=== PATIENT | male | born 1955 | race Caucasian/White ===

== ENCOUNTER 2020-06-14 13:53 | Outpatient (CLI) | payer MEDICARE, BC ==
[2020-06-14 14:54] LABS: BASOPHILS # (AUTO) 0.1 X10'3 (0-0.2); BASOPHILS % (AUTO) 0.7 % (0-1); EOSINOPHILS # (AUTO) 0.2 X10'3 (0-0.9); EOSINOPHILS % (AUTO) 2.3 % (0-6); HEMATOCRIT 49.5 % (42.0-52.0); HEMOGLOBIN 16.4 g/dl (14.0-17.9); LYMPHOCYTES # (AUTO) 2.5 X10'3 (1.1-4.8); LYMPHOCYTES % (AUTO) 26.4 % (21-51); MEAN CORPUSCULAR HEMOGLOBIN 30.8 PG (27.0-31.0); MEAN CORPUSCULAR HGB CONC 33.1 g/dL (33.0-36.5); MEAN CORPUSCULAR VOLUME 93.1 FL (78-98); MONOCYTES # (AUTO) 0.9 X10'3 (0-0.9); MONOCYTES % (AUTO) 9.8 % (2-12); NEUTROPHILS # (AUTO) 5.8 X10'3 (1.8-7.7); NEUTROPHILS % (AUTO) 60.8 % (42-75); PLATELET COUNT 267 X10'3 (140-440); RED BLOOD COUNT 5.32 X10'6 (4.70-6.10); RED CELL DISTRIBUTION WIDTH 12.8 % (11.5-14.5); WHITE BLOOD COUNT 9.5 X10'3 (4.5-11.0)
[2020-06-14 14:56] LABS: CLARITY,URINE CLEAR (Clear); COLOR,URINE YELLOW (Yellow); GLUCOSE, URINE NEGATIVE (Neg); KETONES,URINE NEGATIVE (Neg); LEUKOCYTE ESTERASE ,URINE NEGATIVE (Neg); NITRITES, URINE NEGATIVE (Neg); OCCULT BLOOD,URINE NEGATIVE (Neg); PH,URINE 5.5 (4.8-8.0); PROTEIN,URINE NEGATIVE (Neg); UA COLLECTION TYPE NON-SPECIFIED
[2020-06-14 15:05] LABS: HEMOGLOBIN A1C 6.3 % (4.5-6.2)
[2020-06-14 15:12] LABS: ALANINE AMINOTRANSFERASE 32 U/L (12-78); ALBUMIN/GLOBULIN RATIO 0.9 (1.1-1.5); ALKALINE PHOSPHATASE 82 IU/L (46-116); ANION GAP 10 (8-16); ASPARTATE AMINO TRANSFERASE 25 U/L (10-37); BLOOD UREA NITROGEN 22 MG/DL (7-18); BUN/CREATININE RATIO 19.1 (5.4-32.0); CALCIUM 9.5 MG/DL (8.5-10.1); CHLORIDE 99 MMOL/L (99-107); CHOL/HDL RATIO 3.7 (0.00-4.99); CHOLESTEROL 196 MG/DL (0-200); CREATININE 1.15 MG/DL (0.60-1.10); GLUCOSE 71 MG/DL (70-104); HDL CHOLESTEROL 53 MG/DL (35-60); LDL CHOLESTEROL 124 MG/DL (50-100); POTASSIUM 3.2 MMOL/L (3.5-5.1); SODIUM 138 MMOL/L (135-145); TOTAL CARBON DIOXIDE 29.2 MMOL/L (24-32); TOTAL PROTEIN 8.4 G/DL (6.4-8.2); TRIGLYCERIDES 169 MG/DL (20-135); eGFR 64 ML/MIN
== END 2020-06-14 23:59 | disposition home or self-care (01) ==
LOC: LAB 13:53
PROVIDERS: ATTEND Family Medicine
DX: Z00.00 Encounter for general adult medical examination without abnormal findings (principal); E78.1 Pure hyperglyceridemia
CPT/HCPCS: 36415; 80053; 80061; 81003; 82043; 83036; 85025

== ENCOUNTER 2024-04-15 11:59 | Outpatient (CLI) | payer MEDICARE, BC | END 2024-04-15 23:59 | disposition home or self-care (01) | LOC: RAD 11:59 | PROVIDERS: ATTEND Family Medicine | DX: M16.0 Bilateral primary osteoarthritis of hip (principal); M25.551 Pain in right hip; M25.552 Pain in left hip | CPT/HCPCS: 73522 ==

== ENCOUNTER 2025-06-11 14:54 | Emergency (ER) | payer MEDICARE, BC ==
[~2025-06-11] VITALS: Ht 203.2 cm; Wt 113.6 kg
[2025-06-11 14:59] VITALS: TEMP 98.9
--- NOTE | 2025-06-11 15:10 | Physician Documentation ---
History of Present Illness ~ Chief Complaint: Stroke Alert Stated Complaint: DIFF SPEAKING Time Seen by MD: 15:03 Source: family (7) HPI Patient brought in by his for acute stroke symptoms that began at 2:00 p.m.. He had been listening to a podcast, and he came to express to her that he was unable to understand what was happening on the pod cast. Shortly thereafter he began to have difficulty with speech, with significant expressive aphasia. He arrives unable to answer any questions, although he is awake, alert, and smiling. He has a history of what sounds like a syncopal episode two months ago, no other neurologic dysfunction in the past. Past Medical History Past Medical History: High Cholesterol, BPH, *ENDOCRINE* (Prediabetes) Smoking Status: Never smoker Alcohol Use: None Drug Use: none Review of Systems All Other Systems at this time: Reviewed and Negative Physical Exam Vital Signs: Temperature: 98.9, Source: Temporal, Heart Rate: 79, Respiratory Rate: 15, BP: 96/43, Pulse Oximetry: 99 General Appearance General: Pt is awake, alert, smiling, making eye contact, mostly following commands, but unable to answer any questions. Head: Normocephalic and atraumatic. Eyes: Conjunctiva normal. ENT: Mucous membranes moist. Neck: Supple. Chest: Clear to auscultation bilaterally, without rales, rhonchi, or wheezes. There is no accessory muscle use or retractions. Cardiac: Regular rate and rhythm without murmurs, gallops or rubs. Palpation of the chest wall is normal. Abd: Soft, nondistended, nontender, with normoactive bowel sounds. No guarding or rebound. Extremities: Within normal limits without cyanosis, clubbing, or edema. Skin: [place], warm and dry with no significant rash appreciated. Neuro: Cranial nerves II-XII grossly intact. No facial asymmetry. The gait is normal. Progress Results/Orders Results/Orders Orders - DOMONIQUE PRADO MD Monitor (06/11/25 14:59) 2 Large Bore Ivs (06/11/25 14:59) Chest,Single View (06/11/25 14:59) Accucheck (06/11/25 14:59) Ct Stroke Alert (06/11/25 15:14) [place] Prov.Neuro Consult (06/11/25 14:59) Completed Orders - DOMONIQUE PRADO MD Cbc/Diff (06/11/25 14:59) Electrocardiogram (06/11/25 14:59) Chest,Single View (06/11/25 14:59) Ct Stroke Alert (06/11/25 15:14) BMP (06/11/25 14:59) PTT (06/11/25 14:59) Pt Inr (06/11/25 14:59) Iohexol 350mg/Ml 100ml (Omnipaque 350mg/ (06/11/25 15:06) Vital Signs 06/11/25 06/11/25 06/11/25 06/11/25 14:59 15:22 15:24 15:30 Temp 98.9 Pulse 79 82 83 Resp 15 13 16 B/P (MAP) 96/43 144/81 (102) 144/81 Pulse Ox 99 97 96 06/11/25 06/11/25 06/11/25 15:32 15:42 15:52 Pulse 84 85 Resp 13 20 14 B/P (MAP) 139/71 (93) 147/82 (103) 153/52 (85) Pulse Ox 96 97 97 Laboratory Tests Test 06/11/25 15:03 White Blood Count 8.5 Red Blood Count 5.28 Hemoglobin 15.9 Hematocrit 47.1 Mean Corpuscular Volume 89.2 Mean Corpuscular Hemoglobin 30.2 Mean Corpuscular Hemoglobin Concent 33.8 Red Cell Distribution Width 13.2 Platelet Count 254 Mean Platelet Volume 6.6 L Neutrophils (%) (Auto) 64.0 Lymphocytes (%) (Auto) 24.5 Monocytes (%) (Auto) 8.7 Eosinophils (%) (Auto) 2.1 Basophils (%) (Auto) 0.7 Neutrophils # (Auto) 5.4 Lymphocytes # (Auto) 2.1 Monocytes # (Auto) 0.7 Eosinophils # (Auto) 0.2 Basophils # (Auto) 0.1 CBC Comment Prothrombin Time 10.4 INR International Normalized Ratio 1.0 Activated Partial Thromboplast Time 26 Coagulation Comments Sodium Level 136 Potassium Level 3.9 Chloride Level 100 Carbon Dioxide Level 26.8 Anion Gap 9 Blood Urea Nitrogen 21 H Creatinine 0.95 Estimated GFR/1.73 m2 78 BUN/Creatinine Ratio 22.1 H Glucose Level 168 H Glucometer 192 H Calcium Level 9.4 Albumin 3.6 Chemistry Comments Re-Evaluation Re-Evaluation #1: Re-Evaluation Time: 15:05 Progress Stroke RN notified and is on her way to facilitate workup Re-Evaluation #2: Re-Evaluation Time: 15:[address] Noyola speaking fluently on return from CT, although mispronouncing certain words. He requested to see his CT and understands the import of the findings. Awaiting communication with [facility] for Neurosurgery consultation and transfer. BP 144/81 Re-Evaluation #3: Re-Evaluation Time: 15:36 Progress BP 138 systolic. Consults/PCP Consults/PCP #1: Time Call Requested: 15:13 Consult Reason/Comments: [facility] for Neurosurgery Additional Comment [id number] Case d/w Dr. Maria (Neurosurgery) and ED physician through transfer center, accepted for transfer. Aware of double dose baby ASA today, no intervention at this time. Keep BP<140 Consults/PCP #2: Time Call Requested: 15:[address] discussed with radiologist. In addition to the original parietal lesion noted, there are two other small foci, one in the right posterior frontal, one in the left anterior frontal, bleeds versus lesions, small and less than 1 cm. Medical Decision Making Additional Information Pt presenting with acute receptive/expressive aphasia, with differential including acute thrombotic stroke, acute intracranial hemorrhage, mass. Timing of symptoms unlikely to reflect any infectious process, and there was no hx of trauma. CT confirming left parietal bleed, but with other more subtle lesions in the bilateral frontal lobes that could represent more bleeding vs. mass lesions. This will require further imaging and management at a facility with Neurosurgery capability. Pt with hx of antiplatelet aspirin therapy and took an additional dose of aspirin this morning, making him anticoagulated. BP in good control and has not required pressure controlling agent prior to transfer. Symptoms improving with BP increase from 96 to 140. Imaging pushed through to the accepting facility. Departure Time of Disposition: 15:24 Disposition: 02 SHORT TERM HOSPITAL Impression: Primary Impression: Intracerebral hemorrhage Qualified Codes: I61.9 - Nontraumatic intracerebral hemorrhage, unspecified Condition: Stable (stable for transfer) Referrals: NO PRIMARY CARE PROVIDER (PCP) Education Educated: Patient, Family Educated regarding: diagnosis, treatment Signature Scribe Signature: Attestation: DOMNOIQUE PRADO MD Jun 11, 2025 15:10
[2025-06-11 15:15] LABS: MEAN PLATELET VOLUME 6.6 FL (7.4-10.4); RED CELL DISTRIBUTION WIDTH 13.2 % (11.5-14.5)
[2025-06-11 15:22] LABS: CREATININE 0.95 MG/DL (0.60-1.10); TOTAL CARBON DIOXIDE 26.8 MMOL/L (24-32); eCRCL 98 ML/MIN; eGFR 78 ML/MIN
--- NOTE | 2025-06-11 15:23 | ELECTROCARDIOGRAPH REPORT ---
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
[2025-06-11 15:26] LABS: APTT 26 SECONDS (22-32); INR 1.0 INR
--- NOTE | 2025-06-11 15:39 | RADIOLOGY REPORT ---
CLINICAL INFORMATION: 69 years old, Male; Stroke Alert. TECHNIQUE: Axial imaging was obtained through the brain without contrast. Coronal and sagittal reform atted images were obtained, reviewed, and stored. Images were reviewed in brain and bone windows. Al l CT scans at this medical facility are performed using dose modulation techniques as appropriate to a performed exam including the following: Automated exposure control was utilized; adjustment of the MA and/or KV according to patient size; and use of iterative reconstruction technique. CTDIvol = 59.3 5 mGy DLP = 1146.7 mGy-cm COMPARISON: None FINDINGS: There are focal areas of intraparenchymal hemorrhage in the left temporal lobe, measuring u p to 1.8 cm and 1.0 cm, respectively. There is associated mild mass effect and sulcal effacement. No midline shift. Small focus of hyperdensity along the anterior superior aspect of the left frontal lob e measuring up to 0.7 cm, likely small intraparenchymal contusion. Small focus of acute hemorrhage in the periphery of the right posterior frontal lobe cortex measuring up to 0.7 cm. The ventricles and sulci are within normal limits in size for age. Basal cisterns are patent. The calvarium is unremark able. Paranasal sinuses and mastoid air cells are clear. IMPRESSION: 1.Small foci of acute intraparenchymal hemorrhage in the left temporal lobe, left anterior superior frontal lobe, and right posterior lateral frontal lobe. Underlying masses in these locations can not be excluded. 2.There is mild mass effect associated with the hemorrhage in the left temporal lobe. No midline sh ift. Critical findings Critical Result: Acute intracranial hemorrhage. Findings discussed with Dr. Castillo, at 06/11/2025 05:33 PM CDT, and acknowledged receipt and unders tanding of the findings. ..
[2025-06-11 15:42] VITALS: PULSE 85
[2025-06-11 15:52] VITALS: BP 153/52; RESP 14; O2SAT 97
--- NOTE | 2025-06-11 16:00 | RADIOLOGY REPORT ---
CHEST RADIOGRAPH Indication: Stroke Alert Technique: DI CHEST,SINGLE VIEW Comparison: None FINDINGS: The cardiac silhouette is unremarkable. The lungs demonstrate perihilar and left basilar airspace [place]. The pulmonary vasculature is prominent. Small left pleural effusion. There is no pneumothorax . IMPRESSION: As above
--- NOTE | 2025-06-11 16:10 | [facility] CONSULT REPORT ---
[facility] Procedure Note [facility] Procedure Note Consult [facility] Note # Demographics Consult Type: Acute Stroke Level 1 (0-4.5 hrs) Patient Location: Emergency Room First Name: ETELVINA Last Name: DEDE Date of : 1955 Age: 69 Gender: Male Facility: [facility] Time of Initial Page (): 06/11/2025 15:30 Time of Return Call ( Time): 06/11/2025 15:30 # HPI Chief Complaint: - speech changes History: 69 yo M p/w difficulties with understanding speech. [id number]. On ASA 81 daily, not taking AC. Last Known Normal: - I have collected independent history specific to time last normal or last known well. We have collaborated with the provider and at this time, we have the most current timeline with the information that is available. 2 pm # Scores Time of exam and NIHSS (): 06/11/2025 15:31 Level of Consciousness 1a: [0] = Alert; keenly responsive LOC Questions 1b: [0] = Answers both questions correctly LOC Commands 1c: [0] = Performs both tasks correctly Best Gaze 2: [0] = Normal Visual 3: [0] = No visual loss Facial Palsy 4: [0] = Normal symmetrical movements Motor Arm Left 5a: [0] = No drift Motor Arm Right 5b: [0] = No drift Motor Leg Left 6a: [0] = No drift Motor Leg Right 6b: [0] = No drift Limb Ataxia 7: [0] = Absent Sensory 8: [0] = Normal Best Language 9: [1] = Lrco-ny-iwcnoyop aphasia Dysarthria 10: [0] = Normal Extinction and Inattention 11: [0] = No abnormality NIHSS Total: 1 ICH Score: [0] = GCS 13-15 [0] = age < 80 [0] = ICH vol < 30 mL [0] = origin of hemorrhage NOT infratentorial ICH Score total: 0 # ROS Additional: - complete review of systems otherwise negative # PMH-FH-SH Past Medical History: - hyperlipidemia - hypertension Medications: - aspirin # Data Head CT: Acute hemorrhages in L frontal and temporal lobe # Assessment Impression: - Intracerebral hemorrhage # Plan Thrombolytic/Intervention: NOT IV Thrombolysis or IA Intervention candidate Thrombolytic Exclusion (< 3 hour window): - ICH Intraarterial Exclusion: - ICH - clinical exam not consistent with presence of large vessel occlusion (LVO), can reconsider if LVO found on vascular imaging Target Blood Pressure: - SBP 130-150 Imaging: (urgency: STAT): - CT Angiogram Head and CT Angiogram Neck Imaging: (urgency: routine): - MRI Brain with AND without contrast - Repeat CT head in 6 and 24 hr Diagnostic Test: - echo without bubble study Therapy/Evaluation: - NPO until swallow evaluation - PT/OT evaluation - speech/swallow consultation DVT Prophylaxis: - SCD Hemorrhage Reversal labs: - CBC, PT/INR, PTT, fibrinogen level, type and cross-match Other: - If patient has any neurological deterioration please call me back immediately - telemetry monitoring - neurology referral as outpatient # Logistics Attestation of consult completion: The patient is located at: [facility]. Facility staff participated in the visit. I performed this telemedicine visit from my offsite office utilizing interactive 2 way audio and visual telecommunication technology. Total time spent in telemedicine encounter: I spent 23 minutes reviewing clinical data and/or imaging, obtaining history, examining the patient, communicating with the onsite care team, and in preparation of this report. # Demographics First Name: ETELVINA [facility] Electronically signed at 06/11/2025 16:08 ([place] Time) by Martin Lozoya MD Neuro Consult Order placed for: Yes MARTIN LOZOYA MD Jun 11, 2025 16:10
== END 2025-06-11 16:00 | disposition short-term general hospital (02) ==
LOC: ER 14:55
DX: I61.9 Nontraumatic intracerebral hemorrhage, unspecified (principal); E78.00 Pure hypercholesterolemia, unspecified
CPT/HCPCS: 36415; 70450; 71045; 80048; 82948; 85025; 85610; 85730; 93005; 99285; Q9967